=== PATIENT | female | born 1980 | race Caucasian/White ===

== ENCOUNTER 2018-09-03 07:59 | Inpatient (IN) | payer BC ==
[2018-09-03] MEDS ORDERED: Oxytocin in LR* 20 UNITS/1,000 ML BAG IVPB SCH (09:00)
[2018-09-03 09:51] LABS: ABS Basophils 0 10^3/ul (0-0.2); ABS Eosinophils 0.1 10^3/ul (0-0.6); ABS Monocytes 0.4 10^3/ul (0-0.8); ABS Neutrophils 7.6 10^3/ul (1.5-7.7); ABS Nucleated RBC 0 10^3/ul; Hematocrit 36 % (35-47); Lymphocyte % 10.5 % (25-47); Mean Corpuscular HGB Conc 33 g/dl (31-36); Mean Corpuscular Hemoglobin 29 pg (27-31); Mean Corpuscular Volume 89 fL (80-97); Mean Platelet Volume 9.7 um3 (7.4-10.4); Nucleated Red Blood Cells % 0; Platelet Count 209 10^3/ul (150-450); Red Blood Count 4.09 10^6/ul (4.00-5.40); Red Cell Distribution Width 15 % (10.5-15); White Blood Count 9.1 10^3/ul (3.5-10.8)
[2018-09-03 10:22] LABS: Albumin 3.3 g/dL (3.2-5.2); Albumin/Globulin Ratio 1.1 (1-3); BUN/Creatinine Ratio 25.5 (8-20); Calcium 8.7 mg/dL (8.6-10.3); EGFR Non-African American 125.1 (>60); Total Bilirubin 0.3 mg/dL (0.2-1.0); Total Protein 6.3 g/dL (6.4-8.9)
[2018-09-03] MEDS ORDERED: OBEPIDURAL* 250 ML EPIDURAL ONE (15:28)
[2018-09-03] MEDS ORDERED: Famotidine TAB* 20 MG PO PRN (15:55)
[2018-09-03] MEDS ORDERED: Phenylephrine IV* 40 MCG/ML 10 ML SYRINGE IV PUSH PRN (15:55)
[2018-09-03] MEDS ORDERED: Sodium Citrate/Citric Acid* 15 ML UDC PO PRN (15:55)
[2018-09-03] MEDS ORDERED: EPHEDrine (Pressors)* 50 MG/ML VIAL IV PUSH PRN (15:55)
[2018-09-03] MEDS ORDERED: Lactated Ringers 1000 ML Bag* 1,000 ML IV ONE (15:55)
[2018-09-03] MEDS ORDERED: OBEPIDURAL* 250 ML EPIDURAL SCH (16:00)
[2018-09-03] MEDS ORDERED: Lactated Ringers 1000 ML Bag* 1,000 ML IV SCH (16:00)
--- NOTE | 2018-09-03 17:36 | HP ---
General Information - Reason for Visit Here for induction at 39 wks for GDMA2 - General Information Maternal Age: 37 Grav: 3 Para: 0 SAB: 1 IEA: 0 Estimated Due Date: 09/09/18 Determined By: LMP Gestational Age in Weeks/Days: 39+1 Maternal Blood Type and Rh: B Positive - Results this Serology/RPR Result: Non-Reactive Rubella Result: Immune HBsAg Result: Negative HIV Result: Negative GBS Culture Result: Negative Past Medical History Delivery History: Hx Uncomplicated Vaginal Delivery Pertinent Past Medical History: See Records - PCOS, morbid obesity, arthritis Pertinent Past Surgical History: None Pertinent Family History: See Records - Antepartal Records Antepartal Records: Reviewed, Complicated by: - GDMA2 Review of Systems Constitutional: Comfortable CV Complaint: No Respiratory: Shortness of Breath: No Gastrointestinal: No Nausea/Vomiting Genitourinary: No Dysuria, No Bleeding, No Leaking Fluid Musculoskeletal: No Complaint, No Epigastric Pain Neurological: No Headache, No Visual Changes Movement: Normal Exam Allergies/Adverse Reactions: Allergies No Known Allergies Allergy (Verified 07/10/15 10:46) mild HTN, afebrile Lab Values - Entire Visit: Laboratory Tests 09/03/18 09/03/18 09/03/18 09:04 09:35 09:35 WBC RBC Hgb Hct MCV MCH MCHC RDW Plt Count MPV Neut % (Auto) Lymph % (Auto) [place] % (Auto) Eos % (Auto) Baso % (Auto) Absolute Neuts (auto) Absolute Lymphs (auto) Absolute Monos (auto) Absolute Eos (auto) Absolute Basos (auto) Absolute Nucleated RBC Nucleated RBC % Sodium 135 Potassium 4.0 Chloride 108 Carbon Dioxide 20 L Anion Gap 7 BUN 14 Creatinine 0.55 Est GFR ( Amer) 151.3 Est GFR (Non-Af Amer) 125.1 BUN/Creatinine Ratio 25.5 H Glucose 82 POC Glucose (mg/dL) 78 Calcium 8.7 Total Bilirubin 0.30 AST 22 ALT 56 H Alkaline Phosphatase 155 H Total Protein 6.3 L Albumin 3.3 Globulin 3.0 Albumin/Globulin Ratio 1.1 Blood Type B Positive Antibody Screen Negative 09/03/18 09/03/18 09/03/18 09:35 14:10 16:32 WBC 9.1 RBC 4.09 Hgb 12.0 Hct 36 MCV 89 MCH 29 MCHC 33 RDW 15 Plt Count 209 MPV 9.7 Neut % (Auto) 83.3 H Lymph % (Auto) 10.5 L [place] % (Auto) 4.9 Eos % (Auto) 1.0 Baso % (Auto) 0.3 Absolute Neuts (auto) 7.6 Absolute Lymphs (auto) 1.0 Absolute Monos (auto) 0.4 Absolute Eos (auto) 0.1 Absolute Basos (auto) 0 Absolute Nucleated RBC 0 Nucleated RBC % 0 Sodium Potassium Chloride Carbon Dioxide Anion Gap BUN Creatinine Est GFR ( Amer) Est GFR (Non-Af Amer) BUN/Creatinine Ratio Glucose POC Glucose (mg/dL) 107 H 101 H Calcium Total Bilirubin AST ALT Alkaline Phosphatase Total Protein Albumin Globulin Albumin/Globulin Ratio Blood Type Antibody Screen - Measurements Height: 5 ft 3 in Weight: 240 lb Weight in lbs: [phone] Body Mass Index (BMI): 42.5 Pre- Weight: 230 lb Weight Gained This : 10 lbs and 0 ozs - Exam Breast: Breast Exam Deferred Heart: Normal Rhythm/Heart Sounds HEENT: No Significant Findings Lungs: Clear Bilaterally Rectal: Rectal Exam Deferred - Abdominal Exam Abdomen Exam: Non-Tender - Ultrasound/Biophysical Profile Ultrasound Status: Not Done Targeted Exam Findings Estimated Weight: 7 lbs Cervical Exam: 1cm - + Effacement: 80% Station: -2 Presenting Part: Vertex Membrane Status: Intact EFM Findings - External Monitor Findings Baseline Heart Rate: 140 External Monitor Findings: Accelerations Present, No Pattern of Variable or Late Decelerations, Variability Moderate Contractions: None Assessment/Plan - Assessment 39+1 wks with GDMA2, very reassuring status, here for induction today. - Obstetrical Risk Factors Obstetrical Risk Factors: Obesity, Gestational Diabetes - Plan Plan: Induction, Admit - Anticipate Vaginal Delivery Plan Comment: Plan pitocin with AROM when able. Pt desires epidural when getting uncomfortable. Will check fingersticks periodically, more often when in labor. Treat accordingly. Expect vaginal delivery. - Date/Time of Admission Date of Admission: 09/03/18 Time of Admission: 09:00
[2018-09-03] MEDS ORDERED: D5LR 1000 ML BAG* 1,000 ML IV SCH (19:00)
[2018-09-04] MEDS ORDERED: Witch Hazel PAD* JAR TOPICAL PRN (00:05)
[2018-09-04] MEDS ORDERED: Acetaminophen TAB* 325 MG PO PRN (00:05)
[2018-09-04] MEDS ORDERED: Dibucaine 1% 28.35 GM TUBE PR PRN (00:05)
[2018-09-04] MEDS ORDERED: Lactated Ringers 1000 ML Bag* 1,000 ML IV SCH (01:00)
[2018-09-04] MEDS ORDERED: Oxytocin in LR* 20 UNITS/1,000 ML BAG IVPB SCH (01:00)
[2018-09-04] MEDS: Ibuprofen TAB* 600 MG PO PRN ×3 (03:16→19:56)
--- NOTE | 2018-09-04 07:39 | PROCNOTE ---
[facility]: Delivery Note - Delivery A Date of : 09/03/18 Time of : 23:31 Sex: Male Weight at : 7 lb Score 1 Minute: 8 Score 5 Minutes: 9 Gestational Age in Weeks and Days at Delivery: 39 Weeks and 1 Days Delivery Method: Spontaneous Vaginal Labor: Induced Did Patient attempt ?: N/A, No Previous Amniotic Fluid: Clear Estimated Blood Loss: 400 Anesthesia/Analgesia: CEI for Labor Delivered By: Eliane Craig - Nursery Level of Nursery: Regular/Bedside - Perineum Perineal Injury: 2nd Degree Perineal Injury Comment: Repaired with 3-0 Vicryl Rapide Perineal Repair: By Delivering Practioner - Events Delivery Events of Note: None Apply, Pitocin During Labor, Pitocin Only After Delivery - Additional Delivery Notes Additional Delivery Notes: Pt admitted at 39 wks for induction for GDMA2. Fingersticks checked regularly and normal. Pitocin resulted in good cervical change and AROM performed with clear fluid. Pt progressed slowly but about 1cm every 1-2 hours. Once fully dilated, she pushed for less than 30 min to deliver the head in a controlled fashion. Shoulders delivered easily. Infant with excellent tone, cried quickly. IV pitocin started. Placenta delivered intact after a few minutes, and perineal repair performed.
[2018-09-04 07:56] LABS: ABS Basophils 0.1 10^3/ul (0-0.2); ABS Eosinophils 0.1 10^3/ul (0-0.6); ABS Lymphocytes 1.5 10^3/ul (1.0-4.8); ABS Monocytes 1.1 10^3/ul (0-0.8); ABS Neutrophils 14.1 10^3/ul (1.5-7.7); ABS Nucleated RBC 0 10^3/ul; Eosinophil % 0.6 % (0-6); Hematocrit 32 % (35-47); Hemoglobin 10.8 g/dl (12.0-16.0); Lymphocyte % 8.8 % (25-47); Mean Corpuscular HGB Conc 34 g/dl (31-36); Mean Corpuscular Hemoglobin 30 pg (27-31); Mean Corpuscular Volume 88 fL (80-97); Mean Platelet Volume 9.7 um3 (7.4-10.4); Nucleated Red Blood Cells % 0.2; Platelet Count 195 10^3/ul (150-450); Red Blood Count 3.61 10^6/ul (4.00-5.40); Red Cell Distribution Width 15 % (10.5-15); White Blood Count 16.9 10^3/ul (3.5-10.8)
[2018-09-04] MEDS: Docusate CAP* 100 MG PO SCH ×3 (08:52→19:56)
[2018-09-04] MEDS: Simethicone TAB* 80 MG TAB.CHEW PO SCH ×2 (08:53→12:30)
[2018-09-05] MEDS ORDERED: Ferrous Gluconate TAB* 324 MG TAB PO SCH (09:00)
[2018-09-05] MEDS: Docusate CAP* 100 MG PO SCH (09:17)
[2018-09-05 09:31] VITALS: BP 125/65
== END 2018-09-05 13:20 | disposition home or self-care (01) | DRG 560 ==
LOC: MCHOBOUT 07:59 → MCHOB 08:37
PROVIDERS: ADMIT Obstetrics & Gynecology; ATTEND Obstetrics & Gynecology
PROC: 10E0XZZ Delivery of Products of Conception, External Approach (ICD-10-PCS; principal; 2018-09-03)
PROC: 10907ZC Drainage of Amniotic Fluid, Therapeutic from Products of Conception, Via Natural or Artificial Opening (ICD-10-PCS; 2018-09-03)
PROC: 3E033VJ Introduction of Other Hormone into Peripheral Vein, Percutaneous Approach (ICD-10-PCS; 2018-09-03)
PROC: 4A1HXCZ Monitoring of Products of Conception, Cardiac Rate, External Approach (ICD-10-PCS; 2018-09-03)
PROC: 0KQM0ZZ Repair Perineum Muscle, Open Approach (ICD-10-PCS; 2018-09-03)
DX: O24.424 Gestational diabetes mellitus in childbirth, insulin controlled (principal); Z68.41 Body mass index [BMI] 40.0-44.9, adult; Z37.0 Single live birth; Z3A.39 39 weeks gestation of pregnancy; O76 Abnormality in fetal heart rate and rhythm complicating labor and delivery; O99.214 Obesity complicating childbirth; O70.1 Second degree perineal laceration during delivery; E66.01 Morbid (severe) obesity due to excess calories; O99.284 Endocrine, nutritional and metabolic diseases complicating childbirth; E28.2 Polycystic ovarian syndrome
CPT/HCPCS: 36415; 80053; 85025; 86850; 86900; 86901; A9270-GY